=== PATIENT | male | born 1990 | race Caucasian/White ===

== ENCOUNTER → 2021-05-27 17:02 | Outpatient (BNVA) | payer OTHER, SELFPAY | PROVIDERS: Visit Provider Nurse Practitioner | DX: Z20.822 Contact with and (suspected) exposure to COVID-19 (principal); H66.002 Acute suppurative otitis media without spontaneous rupture of ear drum, left ear | CPT/HCPCS: 87635 ==

== ENCOUNTER 2021-11-03 00:54 | Emergency (ER) | payer OTHER, SELFPAY ==
--- NOTE | 2021-11-03 01:00 | XRR_ITS ---
PROCEDURE INFORMATION: Exam: XR Chest Exam date and time: 11/03/2021 1:00 AM Age: 31 years old Clinical indication: Pain; Chest pressure; Prior surgery; Surgery type: History of chest tube placement. ; Patient HX: C/O cough with chest discomfort. History of pneumothorax with chest tube placement. ; Additional info: SOB TECHNIQUE: Imaging protocol: XR of the chest. Views: 1 view. COMPARISON: CR Chest 2 views* [id number] 06/20/2017 10:46 PM FINDINGS: Lungs: Surgical sutures noted at the left lung apex. No consolidation. Pleural spaces: Unremarkable. No pleural effusion. No pneumothorax. Heart/Mediastinum: No cardiomegaly. Bones/joints: No acute fracture. XR/XR chest 1V portable [id number] IMPRESSION: No acute findings.
[2021-11-03 01:21] VITALS: BP 133/81; PULSE 114; RESP 18; TEMP 36.9; O2SAT 96; BMI 16.9
--- NOTE | 2021-11-03 01:31 | ECG_ITS ---
[facility] Test Date: 2021-11-03 Pat Name: Juan C Rangel Department: Room: Gender: Male Surgical Services Manager: : 1990 Requested By: Kelsea Melvin Order Number: [id number] Jennifer MD: Butch Goldstein M.D. Measurements Intervals [place] Rate: 107 P: 56 OR: 132 QRS: 69 QRSD: 100 T: 61 QT: 304 QTc: 406 Interpretive Statements SINUS TACHYCARDIA INCOMPLETE RIGHT BUNDLE BRANCH BLOCK [90+ ms QRS DURATION, TERMINAL R IN V1/V2, 40+ ms S IN I/aVL/V4/V5/V6] ST ELEVATION, PROBABLY EARLY REPOLARIZATION [ST ELEVATION WITH NORMALLY INFLECTED T-WAVE] ABNORMAL RHYTHM ECG Compared to ECG 06/21/2017 01:38:48 ST (T wave) deviation now present Early repolarization now present Electronically Signed On 11-03-2021 18:31:04 LOADING MACHINE ADJUSTER by Butch Goldstein M.D. [id number]
--- NOTE | 2021-11-03 01:43 | W.ED.GENADLT ---
HPI - General Adult General: Chief complaint: General Medical Stated complaint: Coughing\Chest Pains\Fever Time Seen by Provider: 11/03/21 01:38 Source: patient Mode of arrival: ambulatory Limitations: no limitations History of Present Illness: 31-year-old male states that over the last 4 to 5 days has been having cough congestion and chest pain. He states the pain has been having's been sharp in nature and worse with the cough. Denies any fevers denies any worsening improving factors. He states he is also been having dental pain has a history of very poor dentition mainly on the right lower molar Associated symptoms: Reports chest pain and dyspnea; Deny headache(s), nausea, rash or vomiting Review of Systems Const: Denies: fever(s), chills, body aches or change in appetite Eyes: Denies: blurry vision or eye discomfort ENMT: Reports: dental pain; Denies: throat pain Card: Reports: chest pain Resp: Reports: dyspnea and non-productive cough GI: Denies: abdominal pain, nausea, vomiting or diarrhea : Denies: dysuria Musc: Denies: neck pain or back pain Skin/Breast: Denies: rash Neuro: Denies: headache(s) Psych: Denies: depression Alexandre/Lymph: Denies: easy bruising All/Imm: Denies: urticaria PFSH ED PFSH: Medical History No active medical problems Social History Smoking and tobacco status: current every day smoker Physical Exam Const: COMMON NORMALS: no acute distress, patient oriented x3 and healthy appearing HENMT: COMMON NORMALS: normocephalic and atraumatic HEAD & SCALP: normocephalic and atraumatic OTHER: Very poor dentition pain over right lower molar Eye: COMMON NORMALS: Equal, round and reactive pupils present and EOMs intact bilaterally PUPIL: Yes Equal, round and reactive pupils present Neck/C-Spine: COMMON NORMALS: full ROM and supple Chest: COMMONS NORMALS: normal inspection of the chest and normal palpation of entire chest wall Resp: COMMON NORMALS: normal respiratory effort, No retractions, No use of accessory muscles and clear to auscultation bilaterally AUSCULTATION: clear to auscultation bilaterally Cardio: COMMON NORMALS: regular rate, regular rhythm and No murmurs present (Cardio) RATE: regular rate RHYTHM: regular rhythm GI: COMMON NORMALS: Normal to inspection, nondistended, normoactive bowel sounds present, Soft to palpation, non-tender and no masses PALPATION: Yes Soft to palpation Extremity: COMMON NORMALS: normal to inspection and full ROM Neuro: COMMON NORMALS: patient oriented x3, moves all extremities and no focal motor deficits Psych: COMMON NORMALS: mental status grossly normal, Normal thought process present and cooperative THOUGHT PROCESS: Normal thought process present Skin: COMMON NORMALS: no rashes or lesions noted and no wounds GENERAL SKIN EXAM: no rashes or lesions noted Course Vital Signs: Vital signs: Vital Signs Temperature 98.4 F 11/03/21 01:21 Pulse Rate 114 H 11/03/21 01:21 Respiratory Rate 18 11/03/21 01:52 Blood Pressure 133/81 11/03/21 01:21 Pulse Oximetry 96 11/03/21 01:21 [facility] - General Adult Medical Decision Making Patient presents with chest pains atypical in nature from coughing also has dental pain with likely dental infection no abscess will place him on Keflex along with pain medicine he is to follow-up with PCP along with a dentist Lab Data : 11/03/21 01:40 11/03/21 01:40 Laboratory Results WBC 7.1 10^3/uL (4.0-10.0) 11/03/21 01:40 RBC 4.63 10^6/uL (4.1-5.3) 11/03/21 01:40 Hgb 14.6 g/dL (11.7-16.6) 11/03/21 01:40 Hct 42.9 % (42.0-52.0) 11/03/21 01:40 MCV 92.7 fl (80-94) 11/03/21 01:40 MCH 31.5 pg (28.0-34.0) 11/03/21 01:40 MCHC 34.0 g/dL (30.0-36.0) 11/03/21 01:40 RDW 11.7 % (12.1-15.1) L 11/03/21 01:40 Plt Count 183 10^3/cmm (130-400) 11/03/21 01:40 MPV 11.6 fL (7.4-10.4) H 11/03/21 01:40 Neut % (Auto) 80.8 % 11/03/21 01:40 Lymph % (Auto) 6.2 % 11/03/21 01:40 [place] % (Auto) 7.9 % 11/03/21 01:40 Eos % (Auto) 4.2 % 11/03/21 01:40 Baso % (Auto) 0.6 % 11/03/21 01:40 Neut # (Auto) 5.70 10^3/uL (1.8-7.7) 11/03/21 01:40 Lymph # (Auto) 0.4 10^3/uL (0.8-4.8) L 11/03/21 01:40 [place] # (Auto) 0.6 10^3/uL (0.2-0.9) 11/03/21 01:40 Eos # (Auto) 0.3 10^3/uL (0.0-0.8) 11/03/21 01:40 Baso # (Auto) 0.0 10^3/uL (0.0-0.1) 11/03/21 01:40 Nucleated RBC % (auto) 0 % 11/03/21 01:40 Nucleated RBCs # 0.0 /100WBC 11/03/21 01:40 D-Dimer <= 0.27 ug/mIFEU (0-0.59) 11/03/21 01:40 Sodium 139 mmol/L (136-145) 11/03/21 01:40 Potassium 4.3 mmol/L (3.5-5.1) 11/03/21 01:40 Chloride 99 mmol/L (98-107) 11/03/21 01:40 Carbon Dioxide 29 mmol/L (22-29) 11/03/21 01:40 Anion Gap 15.3 (5-19) 11/03/21 01:40 BUN 14 mg/dL (6-20) 11/03/21 01:40 Creatinine 0.7 mg/dL (0.7-1.2) 11/03/21 01:40 GFR Calculation 131.5 mL/min (90-130) H 11/03/21 01:40 Glucose 85 mg/dL (65-115) 11/03/21 01:40 Calculated Osmolality 288 mOsm/kg (285-295) 11/03/21 01:40 Calcium 9.1 mg/dL (8.5-10.5) 11/03/21 01:40 Total Bilirubin 0.2 mg/dL (0.15-1.2) 11/03/21 01:40 AST 14 U/L (0-40) 11/03/21 01:40 ALT 12 U/L (0-41) 11/03/21 01:40 Alkaline Phosphatase 57 IU/L (40-130) 11/03/21 01:40 Troponin T Baseline 6 ng/L (0-15) 11/03/21 01:40 Total Protein 7.7 g/dL (6.6-8.7) 11/03/21 01:40 Albumin 4.8 g/dL (3.5-5.2) 11/03/21 01:40 Globulin 2.9 g/dL (1.3-4.6) 11/03/21 01:40 Lipase 17 U/L (13-60) 11/03/21 01:40 EKG Data EKG 1: I personally reviewed and interpreted this EKG as follows: EKG interpretation date: 11/03/21 EKG interpretation time: 01:28 Interpretation: no stemi early repol no t wave abnormalities qrs 100 qtc 367 Discharge Plan Discharge Patient Disposition: Home Clinical Impression: Upper respiratory infection, Chest pain, Pain, dental Condition: Stable Prescriptions: New Naprosyn 500 mg tablet 500 mg PO BID PRN (Reason: pain) Qty: 20 0RF cephalexin 500 mg capsule 500 mg PO TID 7 Days Qty: 21 0RF No Action azithromycin 250 mg tablet See Rx Instructions PO .COMPLEX Qty: 6 0RF Rx Instructions: take 500 mg today (day 1), then 250 mg for 4 days (days 2-5) PO 340b Discharge Orders: Discharge ED (Routine); Ordered 11/03/21 Ordered By: Kelsea Melvin Discharge Diet: Advance as tolerated Discharge Activity: Resume usual activity Patient Instructions: Upper Respiratory Infection (ED) Coding Level of Care Code ED Sparmaker for Chg Fwd Exam Comprehensive
[2021-11-03 01:51] LABS: Basophils % 0.6 %; Eosinophils # 0.3 10^3/uL (0.0-0.8); Eosinophils % 4.2 %; Hematocrit 42.9 % (42.0-52.0); Hemoglobin 14.6 g/dL (11.7-16.6); Lymphocytes # 0.4 10^3/uL (0.8-4.8); Lymphocytes % 6.2 %; Mean Corpuscular Hemoglobin 31.5 pg (28.0-34.0); Mean Corpuscular Volume 92.7 fl (80-94); Mean Platelet Volume 11.6 fL (7.4-10.4); Monocytes # 0.6 10^3/uL (0.2-0.9); Monocytes % 7.9 %; Neutrophils % 80.8 %; Nucleated Red Blood Cells % 0 %; Platelet Count 183 10^3/cmm (130-400); Red Blood Count 4.63 10^6/uL (4.1-5.3); Red Cell Distribution Width 11.7 % (12.1-15.1); White Blood Count 7.1 10^3/uL (4.0-10.0)
[2021-11-03 01:52] VITALS: RESP 18
[2021-11-03] MEDS: morphine 4 mg/mL SDV 1 mL IVP (01:52)
[2021-11-03] MEDS: ondansetron 2 mg/ML SDV 2 mL 4 MG IVP (01:52)
[2021-11-03 02:10] LABS: D Dimer <= 0.27 ug/mIFEU (0-0.59)
[2021-11-03 02:24] LABS: Alanine Aminotransferase 12 U/L (0-41); Albumin Level 4.8 g/dL (3.5-5.2); Alkaline Phosphatase 57 IU/L (40-130); Anion Gap 15.3 (5-19); Aspartate Amino Transferase 14 U/L (0-40); Blood Urea Nitrogen 14 mg/dL (6-20); Calcium 9.1 mg/dL (8.5-10.5); Carbon Dioxide 29 mmol/L (22-29); Chloride 99 mmol/L (98-107); Globulin 2.9 g/dL (1.3-4.6); Glomerular Filtration Rate 131.5 mL/min (90-130); Glucose 85 mg/dL (65-115); Lipase 17 U/L (13-60); Osmolality Calculated 288 mOsm/kg (285-295); Potassium 4.3 mmol/L (3.5-5.1); Sodium 139 mmol/L (136-145); Total Bilirubin 0.2 mg/dL (0.15-1.2); Total Protein 7.7 g/dL (6.6-8.7)
[2021-11-03 02:25] LABS: Troponin(5th) Baseline 6 ng/L (0-15)
[2021-11-03 03:18] VITALS: BP 140/87; PULSE 99; RESP 20; O2SAT 95
[2021-11-06 11:06] LABS: Quest SARS-CoV-2 RNA DETECTED (NOT DETECTED)
--- NOTE | 2021-11-06 16:59 | PC.NURSE ---
Attempt to contact pt, no answer or voice mail
== END 2021-11-03 03:15 | disposition home or self-care (01) ==
PROVIDERS: Emergency Provider Emergency Medicine
DX: U07.1 COVID-19 (principal); R07.9 Chest pain, unspecified; K08.89 Other specified disorders of teeth and supporting structures; F17.219 Nicotine dependence, cigarettes, with unspecified nicotine-induced disorders
CPT/HCPCS: 71045; 80053; 83690; 84484; 85025; 85378; 87635; 93005; 96374; 96375; 99283; J2270; J2405

== ENCOUNTER 2021-11-13 02:42 | Emergency (ER) | payer SELFPAY ==
[2021-11-13 03:14] VITALS: BP 143/91; PULSE 79; RESP 18; TEMP 36.5; O2SAT 99; BMI 16.9
--- NOTE | 2021-11-13 04:18 | W.ED.ALLEREA ---
HPI - Allergic Reaction General: Chief complaint: Allergic Reaction Stated complaint: Allergic Reaction Time Seen by Provider: 11/13/21 04:11 Source: patient History of Present Illness: HPI narrative: 31-year-old male with a previous history of urticaria. He finished cephalexin course 3 days ago. He reports hives that started last night, with significant itching. They coalesced up to his neck, which concerned him. No wheezing or significant trouble breathing. He took 2 Benadryl, with some improvement as of now he notes no other exposure to medications, foods, or detergents/soaps out of the ordinary. MD complaint: allergic reaction and hives Onset (ago): hour(s) Exposure: medication Known history of allergy to: Penicillins and procaine Associated symptoms: Reports itching and rash; Deny abdominal pain, difficulty breathing, dysphagia, dizziness, facial swelling, hoarseness, lip swelling, nausea, tongue swelling or vomiting Severity: moderate Treatment prior to arrival: benadryl Previous Allergic Reaction History: other Review of Systems ENMT: Denies: hoarseness Card: Denies: chest pain or palpitations Resp: Denies: dyspnea, productive cough or non-productive cough GI: Denies: abdominal pain, nausea, vomiting or dysphagia Neuro: Denies: dizziness All/Imm: Denies: tongue swelling or facial swelling PFSH ED PFSH: Medical History No active medical problems Social History Smoking and tobacco status: current every day smoker Physical Exam Const: COMMON NORMALS: no acute distress GENERAL APPEARANCE: cooperative HENMT: COMMON NORMALS: normocephalic, atraumatic and Normal external nose present HEAD & SCALP: normocephalic and atraumatic FACE & SINUS: normal facial exam NOSE: Normal external nose present and Normal nares present MOUTH: Normal oral and palatal mucosa present and tongue normal Eye: COMMON NORMALS: Equal, round and reactive pupils present and EOMs intact bilaterally PUPIL: Yes Equal, round and reactive pupils present Chest: COMMONS NORMALS: normal inspection of the chest Resp: COMMON NORMALS: normal respiratory effort, No use of accessory muscles and clear to auscultation bilaterally AUSCULTATION: clear to auscultation bilaterally Cardio: COMMON NORMALS: regular rate and regular rhythm RATE: regular rate RHYTHM: regular rhythm GI: COMMON NORMALS: Normal to inspection, nondistended, normoactive bowel sounds present and Soft to palpation PALPATION: Yes Soft to palpation Neuro: SHERIF COMA SCALE: document GCS findings Sherif coma scale eye opening: Spontaneous [place] coma scale verbal response: Orientated [place] coma scale motor response: Obey commands [place] coma scale total score: 15 Skin: NARRATIVE SKIN EXAM: Fine urticaria to extremities and trunk. No facial urticaria. No edema. Course Vital Signs: Vital signs: Vital Signs Temperature 97.7 F 11/13/21 03:14 Pulse Rate 79 11/13/21 03:14 Respiratory Rate 18 11/13/21 03:14 Blood Pressure 143/91 11/13/21 03:14 Pulse Oximetry 99 11/13/21 03:14 MDM - Allergic Reaction Medical Decision Making No airway symptoms. Saturations are 100% on room air. Rash is improved after home dose of Benadryl. Discharge Plan Discharge Patient Disposition: Home Clinical Impression: Allergic reaction, Urticaria Condition: Stable Prescriptions: New Medrol (Rinku) 4 mg tablets,dose pack See Rx Instructions .ROUTE .COMPLEX Qty: 21 0RF Rx Instructions: orally per package directions No Action azithromycin 250 mg tablet See Rx Instructions PO .COMPLEX Qty: 6 0RF Rx Instructions: take 500 mg today (day 1), then 250 mg for 4 days (days 2-5) PO 340b Naprosyn 500 mg tablet 500 mg PO BID PRN (Reason: pain) Qty: 20 0RF Discharge Orders: Discharge ED (Routine); Ordered 11/13/21 Ordered By: Nigel Lo Discharge Diet: Advance as tolerated Discharge Activity: Increase activity as tolerated Patient Instructions: General Allergic Reaction (ED) Activity Restrictions/Additional Instructions: Return for facial or tongue swelling, trouble breathing, vomiting, worsening rash despite treatment, other concerning symptoms. Take 1 Benadryl every 6 hours for the next 48 hours, then as needed. Take prescribed medication as directed. Coding Level of Care Code ED Director Of Design for Makenna [place]ney Exam Comprehensive
[2021-11-13 04:39] VITALS: O2SAT 100
[2021-11-13] MEDS: famotidine 20 mg Tablet 40 MG PO (04:39)
[2021-11-13] MEDS: predniSONE 20 mg Tablet 60 MG PO (04:39)
[2021-11-13] MEDS: diphenhydrAMINE 50 mg Capsule PO (04:39)
== END 2021-11-13 04:41 | disposition home or self-care (01) ==
PROVIDERS: Emergency Provider Emergency Medicine
DX: T78.40XA Allergy, unspecified, initial encounter (principal); L50.9 Urticaria, unspecified; F17.210 Nicotine dependence, cigarettes, uncomplicated
CPT/HCPCS: 99283; J7512; Q0163

== ENCOUNTER 2022-09-10 02:13 | Emergency (ER) | payer OTHER, SELFPAY ==
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
[2022-09-10 02:23] VITALS: BP 176/101; PULSE 90; RESP 20; TEMP 36.3; O2SAT 97; BMI 19.6
[2022-09-10 02:34] LABS: Basophils # 0.1 10^3/uL (0.0-0.1); Basophils % 0.8 %; Eosinophils # 0.4 10^3/uL (0.0-0.8); Hematocrit 45.1 % (42.0-52.0); Hemoglobin 15.1 g/dL (11.7-16.6); Lymphocytes # 2.9 10^3/uL (0.8-4.8); Lymphocytes % 39.8 %; Mean Corpuscular HGB Conc 33.5 g/dL (30.0-36.0); Mean Corpuscular Hemoglobin 30.9 pg (28.0-34.0); Mean Corpuscular Volume 92.2 fl (80-94); Mean Platelet Volume 11.7 fL (7.4-10.4); Monocytes # 0.6 10^3/uL (0.2-0.9); Monocytes % 8.2 %; Neutrophils # 3.27 10^3/uL (1.8-7.7); Neutrophils % 45.2 %; Nucleated Red Blood Cells % 0 %; Platelet Count 202 10^3/cmm (130-400); Red Blood Count 4.89 10^6/uL (4.1-5.3); Red Cell Distribution Width 11.7 % (12.1-15.1); White Blood Count 7.2 10^3/uL (4.0-10.0)
[2022-09-10 02:53] LABS: Anion Gap 14.9 (5-19); Blood Urea Nitrogen 12 mg/dL (6-20); Calcium 9.6 mg/dL (8.5-10.5); Carbon Dioxide 25 mmol/L (22-29); Chloride 103 mmol/L (98-107); Glomerular Filtration Rate 130.7 mL/min (90-130); Glucose 105 mg/dL (65-115); Osmolality Calculated 288 mOsm/kg (285-295); Potassium 3.9 mmol/L (3.5-5.1); Sodium 139 mmol/L (136-145)
[2022-09-10 03:11] LABS: Alcohol Level < 10 mg/dL (0-10)
[2022-09-10] MEDS: iohexol 350 mg/mL 500 mL Btl (per mL) IV (03:14)
[2022-09-10] MEDS: acetaminophen 325 mg Tablet 650 MG PO (04:17)
[2022-09-10 06:35] VITALS: BP 104/59; PULSE 64; RESP 14; O2SAT 97
== END 2022-09-10 06:30 | disposition home or self-care (01) ==
PROVIDERS: Emergency Provider Emergency Medicine
DX: S09.8XXA Other specified injuries of head, initial encounter (principal); F17.210 Nicotine dependence, cigarettes, uncomplicated; V69.9XXA Occupant (driver) (passenger) of heavy transport vehicle injured in unspecified traffic accident, initial encounter
CPT/HCPCS: 70450; 70486; 71260; 72125; 74177; 80048; 80307; 85025; 99285; Q9967

== ENCOUNTER 2023-09-04 00:37 | Emergency (ER) | payer OTHER, SELFPAY ==
[2023-09-04 00:38] VITALS: BP 146/82; PULSE 100; RESP 18; TEMP 36.4; O2SAT 96; BMI 19.0
[2023-09-04 00:50] VITALS: BP 129/79; PULSE 81; RESP 13; O2SAT 96
--- NOTE | 2023-09-04 01:02 | W.ED.ALLEREA ---
HPI - Allergic Reaction General: Chief complaint: Allergic Reaction Stated complaint: ALLERGIC REACTION Time Seen by Provider: 09/04/23 00:42 History of Present Illness: HPI narrative: 33-year-old male with a history of allergic reactions. He presents with widespread itching, strange feeling in his tongue, change in his voice, and shortness of breath with a red rash at home. He notes no new foods, no new medications, no insect bites or stings. Also no new detergents or soaps. 911 was called. The patient received 50 mg of IV Benadryl en route, his symptoms are essentially resolved. Associated symptoms: Deny abdominal pain, dizziness, nausea or vomiting Review of Systems Const: Denies: fever(s), chills or body aches Eyes: Denies: change in vision ENMT: Denies: throat pain Card: Denies: chest pain or palpitations Resp: Reports: dyspnea; Denies: productive cough, non-productive cough or wheezing GI: Denies: abdominal pain, nausea, vomiting or hematochezia Skin/Breast: Denies: rash Neuro: Denies: headache(s), weakness in extremities, dizziness or confusion PFS ED PFSH: Medical History No active medical problems Social History Smoking and tobacco/nicotine status: current every day tobacco/nicotine user Physical Exam Const: COMMON NORMALS: no acute distress GENERAL APPEARANCE: cooperative; not ill appearing and not frail appearing HENMT: COMMON NORMALS: normocephalic, atraumatic and Normal external nose present HEAD & SCALP: normocephalic and atraumatic FACE & SINUS: normal facial exam and face symmetric NOSE: Normal external nose present Eye: COMMON NORMALS: Equal, round and reactive pupils present and EOMs intact bilaterally PUPIL: Yes Equal, round and reactive pupils present Neck/C-Spine: GENERAL: Yes trachea midline Chest: CHEST: Yes Symmetrical chest wall rise Resp: COMMON NORMALS: normal respiratory effort, No retractions, No use of accessory muscles and clear to auscultation bilaterally AUSCULTATION: clear to auscultation bilaterally Cardio: COMMON NORMALS: regular rate and regular rhythm RATE: regular rate RHYTHM: regular rhythm GI: COMMON NORMALS: Normal to inspection, nondistended, normoactive bowel sounds present Extremity: COMMON NORMALS: no pedal edema Neuro: SHERIF COMA SCALE: document GCS findings [place] coma scale eye opening: Spontaneous Sher[place] coma scale verbal response: Orientated [place] coma scale motor response: Obey commands Sherif coma scale total score: 15 SENSORY EXAM: Yes extremities (intact) Psych: COMMON NORMALS: speech normal SPEECH: Yes normal speech Skin: COMMON NORMALS: no rashes or lesions noted GENERAL SKIN EXAM: no rashes or lesions noted Course Vital Signs: Vital signs: Vital Signs Temperature 97.6 F 09/04/23 00:38 Pulse Rate 78 09/04/23 02:10 Respiratory Rate 13 09/04/23 02:10 Blood Pressure 126/80 09/04/23 02:10 Pulse Oximetry 93 09/04/23 02:10 Oxygen Delivery Me thod Room Air 09/04/23 00:50 MDM - Allergic Reaction Medical Decision Making Patient has had no recent illness. Has had these problems before. He notes that this seems to be the worst reaction he has had though. He is instructed to keep Benadryl on board. He will be prescribed steroids to prevent rebound. As he seems to have worsening reactions, he will also be prescribed an EpiPen to carry with him. He was counseled that he has to come to the hospital if he feels he has to use the EpiPen, etc. No radiology studies performed this visit Discharge Plan Discharge Patient Disposition: Home Clinical Impression: Allergic reaction Condition: Stable Prescriptions: New EpiPen 2-Rinku 0.3 mg/0.3 mL auto-injector 0.3 mg IM Q10M PRN (Reason: anaphylaxis) Qty: 2 0RF Rx Instructions: do not exceed 3 doses per episode Continued Medrol (Rinku) 4 mg tablets,dose pack See Rx Instructions .ROUTE .COMPLEX Qty: 21 0RF Rx Instructions: orally per package directions No Action azithromycin 250 mg tablet See Rx Instructions PO .COMPLEX Qty: 6 0RF Rx Instructions: take 500 mg today (day 1), then 250 mg for 4 days (days 2-5) PO 340b methocarbamol 750 mg tablet 750 mg PO Q6H PRN (Reason: spasms) Qty: 20 0RF Naprosyn 500 mg tablet 500 mg PO BID PRN (Reason: pain) Qty: 20 0RF Discharge Orders: Discharge ED (Routine); Ordered 09/04/23 Ordered By: Nigel Lo Patient Instructions: Allergic Reaction, Opioid Safety, Pain Management Activity Restrictions/Additional Instructions: If you feel you must use the EpiPen for another reaction, you must come into the hospital for evaluation. Return immediately for shortness of breath, tongue swelling, lip swelling, vomiting, other concerning symptoms. Take Benadryl 3 times daily for the next 24 hours, then as needed following. Other medications as directed. Coding Level of Care Code ED Hand Meat Salter for Makenna Kearney
[2023-09-04] MEDS: methylPREDNISolone sod succ 125 mg/2 mL INJ 80 MG IVP (01:19)
[2023-09-04 02:10] VITALS: BP 126/80; PULSE 78; RESP 13; O2SAT 93
== END 2023-09-04 01:59 | disposition home or self-care (01) ==
PROVIDERS: Emergency Provider Emergency Medicine
DX: T78.40XA Allergy, unspecified, initial encounter (principal); Z72.0 Tobacco use; X58.XXXA Exposure to other specified factors, initial encounter
CPT/HCPCS: 96374; 99284; J2930

== ENCOUNTER 2024-11-03 19:16 | Emergency (ER) | payer OTHER, SELFPAY ==
[2024-11-03 19:17] VITALS: BP 140/74; PULSE 134; RESP 18; TEMP 36.8; O2SAT 96; BMI 18.1
--- NOTE | 2024-11-03 19:30 | XRR_ITS ---
PROCEDURE INFORMATION: Exam: XR Chest Exam date and time: 11/03/2024 7:37 PM Age: 34 years old Clinical indication: Cough; Headache; Weakness; Flank pain TECHNIQUE: Imaging protocol: Radiologic exam of the chest. Views: 1 view. COMPARISON: CT chest abdpel w/*[id number] 09/10/2022 2:55 AM FINDINGS: Lungs: Unremarkable. No consolidation. Pleural spaces: Unremarkable. No pleural effusion. No pneumothorax. Heart/Mediastinum: Unremarkable. No cardiomegaly. Bones/joints: Unremarkable. XR/XR chest 1V portable [id number] IMPRESSION: No acute findings.
--- NOTE | 2024-11-03 19:32 | W.ED.GENADLT ---
Documented by User: NIDA Izquierdo 11/03/24 21:44 HPI - General Adult General: Chief complaint: Abdominal Pain Stated complaint: Headache\V\F Time Seen by Provider: 11/03/24 19:21 History of Present Illness: 34-year-old male patient comes in today with fever, chills, nausea, vomiting, abdominal discomfort. Patient appears unwell but not toxic. Related Data Previous Rx's Medication Instructions Recorded azithromycin 250 mg tablet See Rx Instructions PO .COMPLEX #6 05/27/21 tabs methocarbamol 750 mg tablet 750 mg PO Q6H PRN spasms #20 tabs 09/10/22 naproxen 500 mg tablet (Naprosyn) 500 mg PO BID PRN pain #20 tabs 09/10/22 epinephrine 0.3 mg/0.3 mL 0.3 mg (0.3 mL) IM Q10M PRN 09/04/23 injection, auto-injector (EpiPen anaphylaxis #2 ea 2-Rinku) methylprednisolone 4 mg tablets in See Rx Instructions PO .COMPLEX 09/04/23 a dose pack (Medrol (Rinku)) #21 ea dicyclomine 20 mg tablet 20 mg PO QID PRN abdominal pain 11/03/24 #20 tabs ondansetron 4 mg disintegrating 4 mg PO Q8H PRN nausea and 11/03/24 tablet vomiting #10 tabs Allergies Allergy/AdvReac Type Severity Reaction Status Date / Time Penicillins Allergy ALGY-Anaphy Verified 11/03/24 19:23 laxis procaine [From Novocain] Allergy ALGY-Hives Verified 11/03/24 19:23 Review of Systems General: Reports: 10 or more systems reviewed and unremarkable except in HPI and below PFSH ED PFSH: Medical History No active medical problems Social History Smoking and tobacco/nicotine status: current every day tobacco/nicotine user Physical Exam Const: COMMON NORMALS: alert HENMT: COMMON NORMALS: normocephalic HEAD & SCALP: normocephalic THROAT: abnormal tonsil bilateral erythema Neck/C-Spine: COMMON NORMALS: full ROM Resp: COMMON NORMALS: normal respiratory effort and clear to auscultation bilaterally AUSCULTATION: clear to auscultation bilaterally Cardio: COMMON NORMALS: regular rhythm RATE: tachycardic RHYTHM: regular rhythm GI: PALPATION: Yes Firmness to palpation present (GI) and No Tenderness to palpation present (GI) Extremity: COMMON NORMALS: normal to inspection Neuro: SENSORIUM/ORIENTATION: Yes alert Skin: COMMON NORMALS: turgor normal GENERAL SKIN EXAM: turgor normal Course Vital Signs: Vital signs: Vital Signs Temperature 98.3 F 11/03/24 19:17 Pulse Rate 107 H 11/03/24 21:49 Respiratory Rate 18 11/03/24 19:17 Blood Pressure 139/85 11/03/24 21:49 Pulse Oximetry 97 11/03/24 21:49 Oxygen Delivery Me thod Room Air 11/03/24 21:30 [facility] - General Adult Medical Decision Making 34-year-old male patient comes in today with headache, nausea, abdominal discomfort, for 1 day. Patient also reports some chills. Patient skin is hot to touch. Good skin turgor. Vital signs notes some mild tachycardia in the 130s. Respirations are even. Lungs are clear to auscultation. Abdomen is flat nontender. Differential diagnosis includes not limited to flu syndrome, dehydration, strep pharyngitis, viral syndrome, gastroenteritis. CBC noted some mild elevation and white blood cell count 11,000. CMP noted some mild hyponatremia at 134, glucose 147. Patient appears mildly unwell. Flu and COVID and RSV test were negative. Strep test was negative. Chest x-ray was negative. CT was performed due to abdominal pain and elevation in white blood cell count. CT noted some enteritis but no sign of appendicitis or other abscess. Reviewed exam with patient and family with recommendations for treatment with liquid diet and increase as tolerated. Patient reported understanding agreed to plan. Lab Data 11/03/24 19:30 11/03/24 19:30 Radiology Impressions Chest X-Ray 11/03/24 19:30 IMPRESSION: No acute findings. Abdomen/Pelvis CT 11/03/24 20:31 IMPRESSION: 1. Prominent fluid in the small bowel without dilation may reflect an enteritis. 2. Right lower lobe atelectasis. 3. Left kidney 8.5 mm somewhat complex cyst with small amounts of internal contrast enhancement consistent with a Bosniak 2 F lesion. Bosniak IIF cystic renal mass. The large majority of Bosniak IIF masses are benign. When malignant, nearly all are indolent. Generally, Bosniak IIF masses are followed by imaging at 6 months and 12 months, then annually for a total of 5 years to assess for morphologic change. (Reference: Jaspal) REFERENCES: Jaspal MADRID, et al. Bosniak Classification of Cystic Renal Masses, Version 2019: An Update Proposal and Needs Assessment. Radiology. 2019;292(2):475-488. Laboratory Results WBC 11.86 10^3/uL (3.29-11.43) H 11/03/24 19:30 RBC 4.79 10^6/uL (3.85-5.65) 11/03/24 19:30 Hgb 15.10 g/dL (11.27-16.99) 11/03/24 19:30 Hct 43.3 % (37-53) 11/03/24 19:30 MCV 90.4 fl (82-101) 11/03/24 19:30 MCH 31.5 pg (27-33) 11/03/24 19:30 MCHC 34.9 g/dL (30-55) 11/03/24 19:30 RDW 11.8 % (12.1-15.1) L 11/03/24 19:30 Plt Count 196 10^3/cmm (157-399) 11/03/24 19:30 MPV 11.5 fL (7.4-10.4) H 11/03/24 19:30 Neut % (Auto) 87.1 % 11/03/24 19:30 Lymph % (Auto) 5.6 % 11/03/24 19:30 [place] % (Auto) 6.0 % 11/03/24 19:30 Eos % (Auto) 0.8 % 11/03/24 19:30 Baso % (Auto) 0.2 % 11/03/24 19:30 Neut # (Auto) 10.32 10^3/uL (1.8-7.7) H 11/03/24 19:30 Lymph # (Auto) 0.7 10^3/uL (0.8-4.8) L 11/03/24 19:30 [place] # (Auto) 0.7 10^3/uL (0.2-0.9) 11/03/24 19:30 Eos # (Auto) 0.1 10^3/uL (0.0-0.8) 11/03/24 19:30 Baso # (Auto) 0.0 10^3/uL (0.0-0.1) 11/03/24 19:30 Nucleated RBC % (auto) 0 % 11/03/24 19: Nucleated RBCs # 0.0 /100WBC 11/03/24 19:30 Sodium 134 mmol/L (136-145) L 11/03/24 19:30 Potassium 3.7 mmol/L (3.5-5.1) 11/03/24 19: Chloride 96 mmol/L (98-107) L 11/03/24 19: Carbon Dioxide 23 mmol/L (22-29) 11/03/24: Anion Gap 18.7 (5-19) 11/03/24 19:30 BUN 13 mg/dL (6-20) 11/03/24 19: Creatinine 0.7 mg/dL (0.7-1.2) 11/03/24 19:30 GFR Calculation 129.1 mL/min (90-130) 11/03/24 19:30 Glucose 147 mg/dL (65-115) H 11/03/24 19: Calculated Osmolality 281 mOsm/kg (285-295) L 11/03/24: Calcium 9.1 mg/dL (8.5-10.5) 11/03/24 19:30 Total Bilirubin 0.5 mg/dL (0.15-1.2) 11/03/24 19:30 AST 14 U/L (0-40) 11/03/24 19:30 ALT 13 U/L (0-41) 11/03/24 19:30 Alkaline Phosphatase 55 U/L (40-130) 11/03/24 19: C-Reactive Protein 12.1 mg/L (0.0-4.9) H 11/03/24 19:30 Total Protein 7.5 g/dL (6.6-8.7) 11/03/24 19: Albumin 4.4 g/dL (3.5-5.2) 11/03/24 19: Globulin 3.1 g/dL (1.3-4.6) 11/03/24 19:30 Coronavirus (PCR) Negative (Negative) 11/03/24 19:30 Influenza A (PCR) Negative (Negative) 11/03/24 19:30 Influenza Type B (PCR) Negative (Negative) 11/03/24 19:30 RSV (PCR) Negative (Negative) 11/03/24 19:30 Group A Strep Rapid Negative (Negative) 11/03/24 19:30 All radiology interpretation(s) finalized by discharge Discharge Plan Discharge Patient Disposition: Home Clinical Impression: Enteritis Condition: Stable Prescriptions: New ondansetron 4 mg tablet,disintegrating 4 mg PO Q8H PRN (Reason: nausea and vomiting) Qty: 10 0RF dicyclomine 20 mg tablet 20 mg PO QID PRN (Reason: abdominal pain) Qty: 20 0RF No Action azithromycin 250 mg tablet See Rx Instructions PO .COMPLEX Qty: 6 0RF Rx Instructions: take 500 mg today (day 1), then 250 mg for 4 days (days 2-5) PO 340b methocarbamol 750 mg tablet 750 mg PO Q6H PRN (Reason: spasms) Qty: 20 0RF Naprosyn 500 mg tablet 500 mg PO BID PRN (Reason: pain) Qty: 20 0RF Medrol (Rinku) 4 mg tablets,dose pack See Rx Instructions .ROUTE .COMPLEX Qty: 21 0RF Rx Instructions: orally per package directions EpiPen 2-Rinku 0.3 mg/0.3 mL auto-injector 0.3 mg IM Q10M PRN (Reason: anaphylaxis) Qty: 2 0RF Rx Instructions: do not exceed 3 doses per episode Discharge Orders: Discharge ED (Routine); Ordered 11/03/24 Ordered By: Nash Jean-Baptiste Discharge Diet: Advance as tolerated Discharge Activity: Increase activity as tolerated Patient Instructions: Enteritis (ED) Activity Restrictions/Additional Instructions: Stay on a clear liquid diet until your abdominal pain improves. Then increase to a bland diet. Plenty water and fluids. Use medication as needed for nausea and pain. Follow-up with primary care in 3 days for recheck. Return to ED for new concerns. Stand Alone Forms: Work/School Release Coding Level of Care Code ED Clinical Biochemist for Chg Fwd Documented by User: Nigel Lo DO 11/04/24 00:09 HPI - General Adult General: Chief complaint: Abdominal Pain Stated complaint: Headache\V\F Time Seen by Provider: 11/03/24 19:21 Related Data Previous Rx's Medication Instructions Recorded azithromycin 250 mg tablet See Rx Instructions PO .COMPLEX #6 05/27/21 tabs methocarbamol 750 mg tablet 750 mg PO Q6H PRN spasms #20 tabs 09/10/22 naproxen 500 mg tablet (Naprosyn) 500 mg PO BID PRN pain #20 tabs 09/10/22 epinephrine 0.3 mg/0.3 mL 0.3 mg (0.3 mL) IM Q10M PRN 09/04/23 injection, auto-injector (EpiPen anaphylaxis #2 ea 2-Rinku) methylprednisolone 4 mg tablets in See Rx Instructions PO .COMPLEX 09/04/23 a dose pack (Medrol (Rinku)) #21 ea dicyclomine 20 mg tablet 20 mg PO QID PRN abdominal pain 11/03/24 #20 tabs ondansetron 4 mg disintegrating 4 mg PO Q8H PRN nausea and 11/03/24 tablet vomiting #10 tabs Allergies Allergy/AdvReac Type Severity Reaction Status Date / Time Penicillins Allergy ALGY-Anaphy Verified 11/03/24 19:23 laxis procaine [From Novocain] Allergy ALGY-Hives Verified 11/03/24 19:23 PFSH ED PFSH: Medical History No active medical problems Social History Smoking and tobacco/nicotine status: current every day tobacco/nicotine user Course Vital Signs: Vital signs: Vital Signs Temperature 98.3 F 11/03/24 19:17 Pulse Rate 107 H 11/03/24 21:49 Respiratory Rate 18 11/03/24 19:17 Blood Pressure 139/85 11/03/24 21:49 Pulse Oximetry 97 11/03/24 21:49 Oxygen Delivery Me thod Room Air 11/03/24 21:30 MDM - General Adult Medical Decision Making 34-year-old male patient comes in today with headache, nausea, abdominal discomfort, for 1 day. Patient also reports some chills. Patient skin is hot to touch. Good skin turgor. Vital signs notes some mild tachycardia in the 130s. Respirations are even. Lungs are clear to auscultation. Abdomen is flat nontender. Differential diagnosis includes not limited to flu syndrome, dehydration, strep pharyngitis, viral syndrome, gastroenteritis. CBC noted some mild elevation and white blood cell count 11,000. CMP noted some mild hyponatremia at 134, glucose 147. Patient appears mildly unwell. Flu and COVID and RSV test were negative. Strep test was negative. Chest x-ray was negative. CT was performed due to abdominal pain and elevation in white blood cell count. CT noted some enteritis but no sign of or other abscess. Reviewed exam with patient and family with recommendations for treatment with liquid diet and increase as tolerated. Patient reported understanding agreed to plan. This patient was originally seen by NIDA Swain.? I agree with his history, evaluation, and treatment. Lab Data 11/03/24 19:30 11/03/24 19:30 Radiology Impressions Chest X-Ray 11/03/24 19:30 IMPRESSION: No acute findings. Abdomen/Pelvis CT 11/03/24 20:31 IMPRESSION: 1. Prominent fluid in the small bowel without dilation may reflect an enteritis. 2. Right lower lobe atelectasis. 3. Left kidney 8.5 mm somewhat complex cyst with small amounts of internal contrast enhancement consistent with a Bosniak 2 F lesion. Bosniak IIF cystic renal mass. The large majority of Bosniak IIF masses are benign. When malignant, nearly all are indolent. Generally, Bosniak IIF masses are followed by imaging at 6 months and 12 months, then annually for a total of 5 years to assess for morphologic change. (Reference: Jaspal) REFERENCES: Jaspal MADRID, et al. Bosniak Classification of Cystic Renal Masses, Version 2019: An Update Proposal and Needs Assessment. Radiology. 2019;292(2):475-488. Laboratory Results WBC 11.86 10^3/uL (3.29-11.43) H 11/03/24 19:30 RBC 4.79 10^6/uL (3.85-5.65) 11/03/24 19:30 Hgb 15.10 g/dL (11.27-16.99) 11/03/24 19:30 Hct 43.3 % (37-53) 11/03/24 19:30 MCV 90.4 fl (82-101) 11/03/24 19: MCH 31.5 pg (27-33) 11/03/24 19: MCHC 34.9 g/dL (30-55) 11/03/24 19: RDW 11.8 % (12.1-15.1) L 11/03/24 19: Plt Count 196 10^3/cmm (157-399) 11/03/24 19: MPV 11.5 fL (7.4-10.4) H 11/03/24 19:30 Neut % (Auto) 87.1 % 11/03/24 19:30 Lymph % (Auto) 5.6 % 11/03/24 19:30 [place] % (Auto) 6.0 % 11/03/24 19: Eos % (Auto) 0.8 % 11/03/24 19: Baso % (Auto) 0.2 % 11/03/24 19: Neut # (Auto) 10.32 10^3/uL (1.8-7.7) H 11/03/24 19:30 Lymph # (Auto) 0.7 10^3/uL (0.8-4.8) L 11/03/24 19:30 [place] # (Auto) 0.7 10^3/uL (0.2-0.9) 11/03/24 19:30 Eos # (Auto) 0.1 10^3/uL (0.0-0.8) 11/03/24 19: Baso # (Auto) 0.0 10^3/uL (0.0-0.1) 11/03/24 19: Nucleated RBC % (auto) 0 % 11/03/24: Nucleated RBCs # 0.0 /100WBC 11/03/24 19:30 Sodium 134 mmol/L (136-145) L 11/03/24 19: Potassium 3.7 mmol/L (3.5-5.1) 11/03/24 19:30 Chloride 96 mmol/L (98-107) L 11/03/24 19:30 Carbon Dioxide 23 mmol/L (22-29) 11/03/24 19:30 Anion Gap 18.7 (5-19) 11/03/24 19:30 BUN 13 mg/dL (6-20) 11/03/24 19:30 Creatinine 0.7 mg/dL (0.7-1.2) 11/03/24 19: GFR Calculation 129.1 mL/min (90-130) 11/03/24 19: Glucose 147 mg/dL (65-115) H 11/03/24: Calculated Osmolality 281 mOsm/kg (285-295) L 11/03/24: Calcium 9.1 mg/dL (8.5-10.5) 11/03/24: Total Bilirubin 0.5 mg/dL (0.15-1.2) 11/03/24: AST 14 U/L (0-40) 11/03/24: ALT 13 U/L (0-41) 11/03/24 19: Alkaline Phosphatase 55 U/L (40-130) 11/03/24: C-Reactive Protein 12.1 mg/L (0.0-4.9) H 11/03/24 19:30 Total Protein 7.5 g/dL (6.6-8.7) 11/03/24 19: Albumin 4.4 g/dL (3.5-5.2) 11/03/24: Globulin 3.1 g/dL (1.3-4.6) 11/03/24 19:30 Coronavirus (PCR) Negative (Negative) 11/03/24:30 Influenza A (PCR) Negative (Negative) 11/03/24: Influenza Type B (PCR) Negative (Negative) 11/03/24 RSV (PCR) Negative (Negative) 11/03/24 Group A Strep Rapid Negative (Negative) 11/03/24 19:30 Discharge Plan Discharge Patient Disposition: Home Clinical Impression: Enteritis Condition: Stable Prescriptions: New ondansetron 4 mg tablet,disintegrating 4 mg PO Q8H PRN (Reason: nausea and vomiting) Qty: 10 0RF dicyclomine 20 mg tablet 20 mg PO QID PRN (Reason: abdominal pain) Qty: 20 0RF No Action azithromycin 250 mg tablet See Rx Instructions PO .COMPLEX Qty: 6 0RF Rx Instructions: take 500 mg today (day 1), then 250 mg for 4 days (days 2-5) PO 340b methocarbamol 750 mg tablet 750 mg PO Q6H PRN (Reason: spasms) Qty: 20 0RF Naprosyn 500 mg tablet 500 mg PO BID PRN (Reason: pain) Qty: 20 0RF Medrol (Rinku) 4 mg tablets,dose pack See Rx Instructions .ROUTE .COMPLEX Qty: 21 0RF Rx Instructions: orally per package directions EpiPen 2-Rinku 0.3 mg/0.3 mL auto-injector 0.3 mg IM Q10M PRN (Reason: anaphylaxis) Qty: 2 0RF Rx Instructions: do not exceed 3 doses per episode Discharge Orders: Discharge ED (Routine); Ordered 11/03/24 Ordered By: Nash Jean-Baptiste Discharge Diet: Advance as tolerated Discharge Activity: Increase activity as tolerated Patient Instructions: Enteritis (ED) Activity Restrictions/Additional Instructions: Stay on a clear liquid diet until your abdominal pain improves. Then increase to a bland diet. Plenty water and fluids. Use medication as needed for nausea and pain. Follow-up with primary care in 3 days for recheck. Return to ED for new concerns. Stand Alone Forms: Work/School Release Coding Level of Care Code ED Clinical Biochemist for Makenna Kearney
[2024-11-03 19:44] LABS: Basophils % 0.2 %; Eosinophils # 0.1 10^3/uL (0.0-0.8); Eosinophils % 0.8 %; Hematocrit 43.3 % (37-53); Lymphocytes # 0.7 10^3/uL (0.8-4.8); Lymphocytes % 5.6 %; Mean Corpuscular HGB Conc 34.9 g/dL (30-55); Mean Corpuscular Hemoglobin 31.5 pg (27-33); Mean Corpuscular Volume 90.4 fl (82-101); Mean Platelet Volume 11.5 fL (7.4-10.4); Monocytes # 0.7 10^3/uL (0.2-0.9); Neutrophils # 10.32 10^3/uL (1.8-7.7); Neutrophils % 87.1 %; Nucleated Red Blood Cells % 0 %; Platelet Count 196 10^3/cmm (157-399); Red Blood Count 4.79 10^6/uL (3.85-5.65); Red Cell Distribution Width 11.8 % (12.1-15.1); White Blood Count 11.86 10^3/uL (3.29-11.43)
[2024-11-03] MEDS: metoclopramide 5 mg/mL SDV 2 mL 10 MG IVP (19:48)
[2024-11-03] MEDS: lactated ringers 1,000 ML 999 ML IV (19:49)
[2024-11-03] MEDS: acetaminophen 1,000 MG/100 ML PIGGYBACK 400 MG IV (19:51)
[2024-11-03] MEDS: diphenhydrAMINE 50 mg/mL SDV 1mL 12.5 MG IVP (19:53)
[2024-11-03 19:57] LABS: Rapid Strep A Test Negative (Negative)
[2024-11-03 19:59] LABS: Alanine Aminotransferase 13 U/L (0-41); Albumin Level 4.4 g/dL (3.5-5.2); Alkaline Phosphatase 55 U/L (40-130); Anion Gap 18.7 (5-19); Aspartate Amino Transferase 14 U/L (0-40); Blood Urea Nitrogen 13 mg/dL (6-20); C Reactive Protein 12.1 mg/L (0.0-4.9); Calcium 9.1 mg/dL (8.5-10.5); Carbon Dioxide 23 mmol/L (22-29); Chloride 96 mmol/L (98-107); Creatinine Clr Calc Pharmacy 131.6503; Globulin 3.1 g/dL (1.3-4.6); Glomerular Filtration Rate 129.1 mL/min (90-130); Glucose 147 mg/dL (65-115); Osmolality Calculated 281 mOsm/kg (285-295); Potassium 3.7 mmol/L (3.5-5.1); Sodium 134 mmol/L (136-145); Total Bilirubin 0.5 mg/dL (0.15-1.2); Total Protein 7.5 g/dL (6.6-8.7)
[2024-11-03 20:03] VITALS: BP 141/86; PULSE 110; O2SAT 95
[2024-11-03 20:29] LABS: Covid PCR NEGATIVE (Negative); Influenza A NEGATIVE (Negative); Influenza B NEGATIVE (Negative); Respiratory Syncytial Virus Ce NEGATIVE (Negative)
--- NOTE | 2024-11-03 20:31 | CTR_ITS ---
PROCEDURE INFORMATION: Exam: CT Abdomen And Pelvis With Contrast Exam date and time: 11/03/2024 8:55 PM Age: 34 years old Clinical indication: Abdominal pain; Localized; Right lower quadrant (rlq); C/O rlq pain TECHNIQUE: Imaging protocol: Computed tomography of the abdomen and pelvis with contrast. Radiation optimization: All CT scans at this facility use at least one of these dose optimization techniques: automated exposure control; mA and/or kV adjustment per patient size (includes targeted exams where dose is matched to clinical indication); or iterative reconstruction. Contrast material: OMNI 350; Contrast volume: 100 ml; Contrast route: INTRAVENOUS (IV); COMPARISON: CT chest abdpel w/*[id number] 09/10/2022 2:55 AM RADIATION DOSE METRICS: Total DLP (mGy-cm): 402.74 FINDINGS: Lungs: Right lower lobe atelectasis. Liver: Normal. No mass. Gallbladder and biliary ducts: Normal. No calcified stones. No ductal dilation. Pancreas: Normal. No ductal dilation. Spleen: Normal. No splenomegaly. Adrenal glands: Normal. No mass. Kidneys and ureters: Left kidney 8.5 mm somewhat complex cyst with small amounts of internal contrast enhancement consistent with a Bosniak 2 F lesion. Stomach and bowel: Prominent fluid in the small bowel without dilation may reflect an enteritis. Appendix: No evidence of appendicitis. Intraperitoneal space: Unremarkable. No free air. No significant fluid collection. Vasculature: Unremarkable. No abdominal aortic aneurysm. Lymph nodes: Unremarkable. No enlarged lymph nodes. Urinary bladder: Unremarkable as visualized. Reproductive: Unremarkable as visualized. Bones/joints: Unremarkable. No acute fracture. Soft tissues: Unremarkable. CT/CT abdomen pelvis w con* [id number] IMPRESSION: 1. Prominent fluid in the small bowel without dilation may reflect an enteritis. 2. Right lower lobe atelectasis. 3. Left kidney 8.5 mm somewhat complex cyst with small amounts of internal contrast enhancement consistent with a Bosniak 2 F lesion. Bosniak IIF cystic renal mass. The large majority of Bosniak IIF masses are benign. When malignant, nearly all are indolent. Generally, Bosniak IIF masses are followed by imaging at 6 months and 12 months, then annually for a total of 5 years to assess for morphologic change. (Reference: Jaspal) REFERENCES: Jaspal MADRID, et al. Bosniak Classification of Cystic Renal Masses, Version 2019: An Update Proposal and Needs Assessment. Radiology. 2019;292(2):475-488.
[2024-11-03] MEDS: iohexol 350 mg/mL 500 mL Btl (per mL) IV (20:56)
[2024-11-03 21:00] VITALS: PULSE 118; O2SAT 96
[2024-11-03 21:30] VITALS: PULSE 117; O2SAT 96
[2024-11-03 21:49] VITALS: BP 139/85; PULSE 107; O2SAT 97
== END 2024-11-03 21:50 | disposition home or self-care (01) ==
PROVIDERS: Emergency Provider Nurse Practitioner Family
DX: K52.9 Noninfective gastroenteritis and colitis, unspecified (principal); Z11.52 Encounter for screening for COVID-19; Z72.0 Tobacco use
CPT/HCPCS: 71045; 74177; 80053; 85025; 86140; 87081; 87637; 87880; 96365; 96375; 99285; J0131; J1200; J2765; J7120

== ENCOUNTER 2025-06-10 05:07 | Emergency (ER) | payer OTHER, SELFPAY ==
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
--- OUTSIDE RECORDS SUMMARY | 2025-06-10 05:11 | XMS_ITS | Clinical Summary ---
Author Organization [facility] Bob valencia [place] Address [address] [place] [address] Phone Care Team Providers Care Tire Fixer Name Role Phone Shauna De La Cruz DO Primary Care Provider [phone] Allergies Active Allergy Reactions Criticality Noted Date Comments Alpha-Gal (Hvcggqbwl-Dazxg-2,3-Galactose) Rash Low 05/23/2024 Medications EPINEPHrine (EPIPEN) 0.3 mg/0.3 mL Auto-InjectorI ndications:All ergy to alpha-gal Inject 0.3 mL (0.3 mg) by intramuscular injection 1 time daily as needed for Anaphylaxis. 2 Each 4 Active gabapentin (NEURONTIN) 600 mg tabletIndicati ons:Disseminat ed herpes zoster Take 0.5 Tablets (300 mg) by mouth 3 times daily as needed for Pain. 90 Tablet 3 4 Active Additional Information Patient not taking.Reported on 11/08/2024 dicyclomine (BENTYL) 20 mg tablet Take 20 mg by mouth 4 times daily before meals and at bedtime. 5 Active ondansetron (ZOFRAN ODT) 4 mg Tablet, Rapid Dissolve Take 4 mg by mouth every 8 hours as needed. 5 Active amitriptyline (ELAVIL) 25 mg tabletIndicati ons:YESENIA (generalized anxiety disorder),Diss eminated herpes zoster Take 1 Tablet (25 mg) by mouth daily at bedtime. 90 Tablet 3 5 Active Active Problems Problem Noted Date Diagnosed Date YESENIA (generalized anxiety disorder) 11/08/2024 Complex renal cyst 11/08/2024 Allergy to alpha-gal 05/23/2024 Encounters Date Type Department Care Team Description 05/20/2025 External Device Data [facility] ABSTRACTION Provider, Abstract from Last 3 Months Social History Tobacco Use Types Packs/Day Years Used Date Smoking Tobacco: Every Day Cigarettes Smokeless Tobacco: Never Tobacco Cessation:Ready to Q uit: Not Asked; Counseling Given: Yes Alcohol Use Standard Drinks/Week Comments Not Currently 0 (1 standard drink = 0.6 oz pur e alcohol) Sex and Gender Information Value Date Recorded Sex Assigned at Not on file Legal Sex Male 8:22 AM CDT Gender Identity Not on file Sexual Orientation Not on file Last Filed Vital Signs Vital Sign Reading Time Taken Comments Blood Pressure 128/76 11/08/2024 11:26 AM DISABILITY PROGRAM NAVIGATOR Pulse 100 11/08/2024 11:26 AM DISABILITY PROGRAM NAVIGATOR Temperature 36.6 C (97.8 F) 11/08/2024 11:26 AM DISABILITY PROGRAM NAVIGATOR Respiratory Rate 18 11/08/2024 11:26 AM DISABILITY PROGRAM NAVIGATOR Oxygen Saturation 96% 11/08/2024 11:26 AM DISABILITY PROGRAM NAVIGATOR Inhaled Oxygen Concentration - - Weight 65.5 kg (144 lb 6.4 oz) 11/08/2024 11:26 AM DISABILITY PROGRAM NAVIGATOR Height 185.4 cm (6' 1 ) 11/08/2024 11:26 AM DISABILITY PROGRAM NAVIGATOR Body Mass Index 19.05 11/08/2024 11:26 AM DISABILITY PROGRAM NAVIGATOR Plan of Treatment Health Maintenance Due Date Last Done Comments DTAP/TDAP/TD VACCINES (1 - Tdap) 2009 HEPATITIS B VACCINES (1 of 3 - 19+ 3-dose series) 03/03 HPV VACCINES (1 - 3-dose SCDM series) 2017 Preventative Visit- Commercial 10/02/2024 INFLUENZA VACCINE (#1) 2025 11/08/[address] [place] [id number] Care Teams Tire Fixer Relationship Specialty Start Date End Date Shauna De La Cruz DO [address] [place] [address] PCP - General Family Practice 05/16/24
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
[2025-06-10 05:13] VITALS: BP 156/87; PULSE 94; RESP 18; TEMP 36.5; O2SAT 95; BMI 20.3
[2025-06-10 05:29] VITALS: BP 144/86; PULSE 90; O2SAT 97
[2025-06-10] MEDS: ondansetron hcl ODT 4 mg Tab PO (05:40)
[2025-06-10] MEDS: HYDROcodone-acetaminophen 5-325 mg Tablet 1 TAB PO (05:40)
[2025-06-10 05:45] VITALS: BP 149/92; PULSE 93; O2SAT 97
== END 2025-06-10 05:54 | disposition home or self-care (01) ==
PROVIDERS: Emergency Provider Emergency Medicine
DX: S80.01XA Contusion of right knee, initial encounter (principal); V89.2XXA Person injured in unspecified motor-vehicle accident, traffic, initial encounter; Z72.0 Tobacco use
CPT/HCPCS: 71045; 73090; 73562; 99284; J9999; Q0162